=== PATIENT | female | born 1990 | race Caucasian/White ===

== ENCOUNTER 2022-01-25 21:09 | Emergency (ER) | payer MEDICAID ==
[~2022-01-25] VITALS: Ht 154.9 cm; Wt 67.6 kg
[~2022-01-25 21:09] MED LIST: ADVIL; MOTRIN; TYLENOL
[2022-01-25 21:23] VITALS: BP 126/65
--- NOTE | 2022-01-25 22:12 | NUR ---
Patient ambulated to bed 4.
--- NOTE | 2022-01-25 22:36 | NUR ---
31/F BIB SELF C/O RIGHT EAR PAIN X1WK RAD TO THE JAW. PATIENT STATED THAT DRAINAGE IS CLEAR. PT HAS BEEN TAKING OTC MEDS WITH NO RELIEF. PT DENIES COUGH, CONGESTION, RUNNY NOSE AND FEVER. DENIES HX RX AND ALLEGIES
[2022-01-25] MEDS ORDERED: NAPR-54 PO (22:46)
[2022-01-25] MEDS ORDERED: AMOX500C25 PO (22:46)
[2022-01-25] MEDS ORDERED: HYDROcodone/APAP 5/325 MG 1 TAB TAB PO ONE (22:50)
--- NOTE | 2022-01-25 22:52 | NUR ---
PT CONFIRMED SHE HAS A RIDE HOME.
[2022-01-25 23:14] VITALS: BP 112/57
--- NOTE | 2022-01-25 23:14 | NUR ---
Patient discharged with v/s stable. Written and verbal after care instructions given and explained. Patient alert, oriented and verbalized understanding of instructions. Ambulatory with steady gait. All questions addressed prior to discharge. ID band removed. Patient advised to follow up with PMD. Rx of AMOXICILLIN AND NAPROSYN given. Patient educated on indication of medication including possible reaction and side effects. Opportunity to ask questions provided and answered.
== END 2022-01-25 23:14 | disposition home or self-care (01) ==
LOC: MED 21:09
DX: H66.91 Otitis media, unspecified, right ear (principal); Z98.51 Tubal ligation status; Z90.49 Acquired absence of other specified parts of digestive tract; Z98.890 Other specified postprocedural states
CPT/HCPCS: 99283

== ENCOUNTER 2023-05-15 19:48 | Emergency (ER) | payer MEDICAID ==
[~2023-05-15] VITALS: Ht 154.9 cm; Wt 53.8 kg
[~2023-05-15 19:48] MED LIST changes: +AMOX500C25 PO; +NAPR-54 PO
[2023-05-15 20:22] VITALS: BP 130/95; PULSE 73; RESP 20; TEMP 97.4; O2SAT 100
[2023-05-15 21:55] LABS: BASOPHILS # (AUTO) 0.1 K/uL (0.00-0.22); EOSINOPHILS # (AUTO) 0.2 K/uL (0-0.4); EOSINOPHILS % (AUTO) 2.7 % (0.0-4.0); HEMATOCRIT 27.7 % (36-48); HEMOGLOBIN 8.5 g/dL (12.0-16.0); LYMPHOCYTES # (AUTO) 2.1 K/uL (2.5-16.5); LYMPHOCYTES % (AUTO) 29.2 % (20.5-51.1); MEAN CORPUSCULAR HEMOGLOBIN 19 pg (27-31); MEAN CORPUSCULAR HGB CONC 31 g/dL (33-37); MEAN CORPUSCULAR VOLUME 62.9 fL (80-94); MONOCYTES # (AUTO) 0.5 K/uL (0.8-1.0); MONOCYTES % (AUTO) 7.5 % (1.7-9.3); NEUTROPHILS # (AUTO) 4.2 K/uL (1.8-7.7); NEUTROPHILS % (AUTO) 59.6 % (42.2-75.2); PLATELET COUNT (AUTO) 647 K/uL (140-450); RED CELL DISTRIBUTION WIDTH 17.2 % (11.6-13.7); WHITE BLOOD COUNT (AUTO) 7.1 K/uL (4.8-10.8)
[2023-05-15 22:20] LABS: ALBUMIN 3.4 g/dL (3.4-5.0); ANION GAP 7.8 (8-16); CALCIUM 8.8 mg/dL (8.5-10.1); CARBON DIOXIDE 31.1 mmol/L (21-32); CREATININE 0.7 mg/dL (0.6-1.3); POTASSIUM 3.9 mmol/L (3.5-5.1); TOTAL BILIRUBIN 0.3 mg/dL (0.0-1.0); TOTAL PROTEIN, SERUM 7.5 g/dL (6.4-8.2)
[2023-05-16] MEDS: ONDANSETRON 4 MG/2 ML VIAL IVP ONE ×2 (00:10→00:33)
[2023-05-16] MEDS: KETOROLAC 30 MG/ML VIAL IVP ONE ×2 (00:10→00:31)
[2023-05-16] MEDS: ACETAMINOPHEN EXTRA STRENGTH 500 MG TAB PO ONE ×2 (00:10→00:32)
[2023-05-16] MEDS: NACL 0.9% 1,000 ML IV ONE (00:29)
[2023-05-16] MEDS ORDERED: ACETAMINOPHEN EXTRA STRENGTH 500 MG TAB ONE (01:48)
[2023-05-16] MEDS ORDERED: KETOROLAC 15 MG/ML VIAL ONE (01:48)
[2023-05-16] MEDS ORDERED: ONDANSETRON 4 MG/2 ML VIAL ONE (01:48)
[2023-05-16] MEDS ORDERED: TRAM-748 PO (07:31)
[2023-05-16 08:22] VITALS: BP 136/78; PULSE 78; RESP 18; TEMP 98.3; O2SAT 97
== END 2023-05-16 08:22 | disposition home or self-care (01) ==
LOC: MED 19:48
DX: R10.13 Epigastric pain (principal); Z79.899 Other long term (current) drug therapy
CPT/HCPCS: 36415; 74176; 80053; 81025; 83690; 84702; 85025; 96361; 96374; 96375; 99285; J1885; J2405; J7030

== ENCOUNTER 2023-05-30 22:11 | Inpatient (IN) | payer MEDICAID ==
[~2023-05-30] VITALS: Ht 154.9 cm; Wt 54.4 kg
[~2023-05-30 22:11] MED LIST changes: +TRAM-748 PO
[2023-05-30 22:38] VITALS: BP 108/55; PULSE 118; RESP 20; TEMP 101.6; O2SAT 99
[2023-05-30] MEDS ORDERED: NACL 0.9% 2,000 ML IV ONE (23:20)
[2023-05-30 23:41] LABS: APPEARANCE,URINE CLEAR (CLEAR); BILIRUBIN,URINE NEGATIVE (NEGATIVE); BLOOD, URINE 3+ (NEGATIVE); COLOR,URINE YELLOW (YELLOW); LEUKOCYTE ESTERASE ,URINE TRACE (NEGATIVE); NITRITE, URINE NEGATIVE (NEGATIVE); PROTEIN,URINE 2+ (NEGATIVE); UGLUCOSE NEGATIVE (NEGATIVE); UROBILINOGEN,URINE 0.2 EU/dL (0.2 - 1)
[2023-05-30] MEDS ORDERED: cefTRIAXone 1,000 MG VIAL ONE (23:42)
[2023-05-30] MEDS ORDERED: KETOROLAC 30 MG/ML VIAL IVP ONE (23:45)
[2023-05-30] MEDS ORDERED: ACETAMINOPHEN EXTRA STRENGTH 500 MG TAB PO ONE (23:45)
[2023-05-30 23:51] LABS: BACTERIA,URINE >30 (MANY) /HPF (None Seen); RBC,URINE 11-20 (MOD) /HPF (0-5)
[2023-05-30 23:52] LABS: MUCUS,URINE 1+ /LPF (None Seen); SQUAMOUS EPITHELIAL CELL,UR 4-10 (MOD) /LPF (0-3 (FEW))
[2023-05-30 23:56] LABS: BASOPHILS # (AUTO) 0.1 K/uL (0.00-0.22); BASOPHILS % (AUTO) 0.3 % (0.0-2.0); EOSINOPHILS % (AUTO) 0.1 % (0.0-4.0); HEMATOCRIT 23.2 % (36-48); HEMOGLOBIN 7.1 g/dL (12.0-16.0); LYMPHOCYTES # (AUTO) 1.2 K/uL (2.5-16.5); LYMPHOCYTES % (AUTO) 5.7 % (20.5-51.1); MEAN CORPUSCULAR HEMOGLOBIN 19 pg (27-31); MEAN CORPUSCULAR HGB CONC 31 g/dL (33-37); MEAN CORPUSCULAR VOLUME 61.6 fL (80-94); MONOCYTES % (AUTO) 9.8 % (1.7-9.3); NEUTROPHILS # (AUTO) 17.4 K/uL (1.8-7.7); NEUTROPHILS % (AUTO) 84.1 % (42.2-75.2); PLATELET COUNT (AUTO) 601 K/uL (140-450); RED BLOOD CELL COUNT(AUTO) 3.78 MIL/uL (4.20-5.40); RED CELL DISTRIBUTION WIDTH 17.7 % (11.6-13.7); WHITE BLOOD COUNT (AUTO) 20.6 K/uL (4.8-10.8)
[2023-05-31 00:14] LABS: ALANINE AMINOTRANSFERASE 43 U/L (12-78); ALKALINE PHOSPHATASE 159 U/L (50-136); ANION GAP 10.8 (8-16); ASPARTATE AMINOTRANSFERASE 58 U/L (15-37); CARBON DIOXIDE 26.4 mmol/L (21-32); CHLORIDE 100 mmol/L (98-107); CREATINE KINASE, TOTAL 388 U/L (26-192); CREATININE 0.8 mg/dL (0.6-1.3); GFR ARICAN-AMERICAN 108 mL/min (>90); GFR NON ARICAN-AMERICAN 90 mL/min (>90); GLUCOSE 105 mg/dL (74-106); POTASSIUM 4.2 mmol/L (3.5-5.1); SODIUM SERUM 133 mmol/L (136-145); TOTAL BILIRUBIN 0.4 mg/dL (0.0-1.0); TOTAL PROTEIN, SERUM 7.4 g/dL (6.4-8.2); UREA NITROGEN, BLOOD 14 mg/dL (7-18)
[2023-05-31 01:06] LABS: LACTIC ACID 1.4 mmol/L (0.4-2.0)
[2023-05-31] MEDS ORDERED: POTASSIUM CHLORIDE 10 MEQ TABER PO PRN (03:30)
[2023-05-31] MEDS ORDERED: guaiFENesin DM 200/20 MG-10 ML 10 ML UDC PO PRN (03:30)
[2023-05-31] MEDS ORDERED: ZOLPIDEM 5 MG TAB PO PRN (03:30)
[2023-05-31] MEDS ORDERED: NACL 0.9% 1,000 ML IV SCH (03:30)
[2023-05-31] MEDS ORDERED: DOCUSATE SODIUM 100 MG GELCAP PO PRN (03:30)
[2023-05-31] MEDS ORDERED: ONDANSETRON 4 MG/2 ML VIAL IM/IVP PRN (03:30)
[2023-05-31 04:25] VITALS: BP 113/44; PULSE 75; PULSE 92; RESP 18; TEMP 97.5; O2SAT 100
[2023-05-31 06:44] LABS: BASOPHILS # (AUTO) 0.1 K/uL (0.00-0.22); BASOPHILS % (AUTO) 0.3 % (0.0-2.0); HEMATOCRIT 26.8 % (36-48); LYMPHOCYTES # (AUTO) 2.6 K/uL (2.5-16.5); LYMPHOCYTES % (AUTO) 13.3 % (20.5-51.1); MEAN CORPUSCULAR HEMOGLOBIN 19 pg (27-31); MEAN CORPUSCULAR HGB CONC 30 g/dL (33-37); MEAN CORPUSCULAR VOLUME 62.6 fL (80-94); MONOCYTES # (AUTO) 2.2 K/uL (0.8-1.0); MONOCYTES % (AUTO) 11.2 % (1.7-9.3); NEUTROPHILS # (AUTO) 14.6 K/uL (1.8-7.7); NEUTROPHILS % (AUTO) 75.2 % (42.2-75.2); PLATELET COUNT (AUTO) 610 K/uL (140-450); RED BLOOD CELL COUNT(AUTO) 4.28 MIL/uL (4.20-5.40); RED CELL DISTRIBUTION WIDTH 17.5 % (11.6-13.7); WHITE BLOOD COUNT (AUTO) 19.5 K/uL (4.8-10.8)
[2023-05-31 07:12] LABS: ALBUMIN 2.8 g/dL (3.4-5.0); ANION GAP 13.9 (8-16); CALCIUM 8.1 mg/dL (8.5-10.1); CARBON DIOXIDE 22.4 mmol/L (21-32); CREATININE 0.7 mg/dL (0.6-1.3); POTASSIUM 4.3 mmol/L (3.5-5.1); TOTAL BILIRUBIN 0.3 mg/dL (0.0-1.0); TOTAL PROTEIN, SERUM 7.4 g/dL (6.4-8.2)
[2023-05-31 08:00] VITALS: BP 114/52; PULSE 100; PULSE 97; RESP 18; TEMP 100.2; O2SAT 98
[2023-05-31] MEDS ORDERED: LACTATED RINGERS 1,000 ML IV SCH (08:15)
[2023-05-31] MEDS: PANTOPRAZOLE 40 MG TABEC PO SCH (08:57)
[2023-05-31] MEDS: ACETAMINOPHEN 325 MG TAB PO PRN ×3 (08:57→23:29)
[2023-05-31] MEDS: NACL 0.9% 1,000 ML IV SCH ×3 (09:00→23:25)
[2023-05-31 12:00] VITALS: BP 104/67; PULSE 100; RESP 18; TEMP 97.4; O2SAT 100
[2023-05-31] MEDS: HYDROcodone/APAP 7.5/325 MG 1 TAB PO PRN (14:32)
[2023-05-31 16:00] VITALS: BP 106/60; PULSE 104; RESP 18; TEMP 98.4; O2SAT 100
[2023-05-31 19:02] LABS: AMPHETAMINE, URINE NEGATIVE ng/ml (NEG <=1000); BARBITURATE, URINE NEGATIVE ng/ml (NEG <=200); BENZODIAZEPINE, URINE NEGATIVE ng/mL (NEG <=200); CANNABINOID, URINE NEGATIVE ng/mL (NEG <=50); COCAINE, URINE NEGATIVE ng/mL (NEG <=300); OPIATE, URINE POSITIVE ng/mL (NEG <=2000); PHENCYCLIDINE SCREEN,URINE NEGATIVE ng/mL (NEG <=25)
[2023-05-31 20:00] VITALS: BP 100/68; PULSE 81; RESP 18; TEMP 98.2; O2SAT 98
[2023-05-31] MEDS ORDERED: LORazepam 1 MG TAB PO ONE (22:05)
[2023-06-01] MEDS ORDERED: LORazepam 1 MG TAB ONE (00:06)
[2023-06-01 04:00] VITALS: BP_SYST 107; BP_SYST 161; BP_DIAS 60; BP_DIAS 76; PULSE 82; RESP 18; TEMP 98.6; O2SAT 98
[2023-06-01 06:49] LABS: BASOPHILS % (AUTO) 0.2 % (0.0-2.0); EOSINOPHILS % (AUTO) 0.1 % (0.0-4.0); HEMATOCRIT 21.9 % (36-48); LYMPHOCYTES # (AUTO) 2.9 K/uL (2.5-16.5); LYMPHOCYTES % (AUTO) 15.8 % (20.5-51.1); MEAN CORPUSCULAR HEMOGLOBIN 19 pg (27-31); MEAN CORPUSCULAR HGB CONC 30 g/dL (33-37); MEAN CORPUSCULAR VOLUME 61.9 fL (80-94); MONOCYTES # (AUTO) 2.7 K/uL (0.8-1.0); MONOCYTES % (AUTO) 15.2 % (1.7-9.3); NEUTROPHILS # (AUTO) 12.5 K/uL (1.8-7.7); NEUTROPHILS % (AUTO) 68.7 % (42.2-75.2); PLATELET COUNT (AUTO) 496 K/uL (140-450); RED BLOOD CELL COUNT(AUTO) 3.53 MIL/uL (4.20-5.40); RED CELL DISTRIBUTION WIDTH 17.8 % (11.6-13.7); WHITE BLOOD COUNT (AUTO) 18.1 K/uL (4.8-10.8)
[2023-06-01 07:01] LABS: HEMOGLOBIN 6.6 g/dL (12.0-16.0)
[2023-06-01 07:22] LABS: ALBUMIN 2.3 g/dL (3.4-5.0); CALCIUM 7.6 mg/dL (8.5-10.1); CARBON DIOXIDE 26.8 mmol/L (21-32); CREATININE 0.6 mg/dL (0.6-1.3); POTASSIUM 3.8 mmol/L (3.5-5.1); TOTAL BILIRUBIN 0.2 mg/dL (0.0-1.0); TOTAL PROTEIN, SERUM 6.5 g/dL (6.4-8.2)
[2023-06-01 08:00] VITALS: TEMP 98.2
[2023-06-01] MEDS: PANTOPRAZOLE 40 MG TABEC PO SCH (09:04)
[2023-06-01 09:43] VITALS: PULSE 94; RESP 18; O2SAT 100
[2023-06-01] MEDS ORDERED: LORazepam 1 MG TAB PO PRN (13:30)
[2023-06-01] MEDS: HYDROcodone/APAP 7.5/325 MG 1 TAB PO PRN (14:10)
[2023-06-01 17:00] LABS: HEMOGLOBIN 8.7 g/dL (12.0-16.0)
[2023-06-01] MEDS: FERROUS GLUCONATE 324 MG TAB PO SCH (17:20)
[2023-06-01 18:03] VITALS: BP 109/52; PULSE 90; RESP 18; TEMP 98.8; O2SAT 98
[2023-06-01 20:00] VITALS: BP 117/82; PULSE 83; RESP 18; TEMP 98.5; O2SAT 98
[2023-06-01] MEDS: ACETAMINOPHEN 325 MG TAB PO PRN (20:45)
[2023-06-02 04:00] VITALS: BP 112/72; PULSE 75; RESP 18; TEMP 98.5; O2SAT 98
[2023-06-02 06:45] LABS: BASOPHILS # (AUTO) 0.1 K/uL (0.00-0.22); BASOPHILS % (AUTO) 0.6 % (0.0-2.0); EOSINOPHILS # (AUTO) 0.1 K/uL (0-0.4); EOSINOPHILS % (AUTO) 0.6 % (0.0-4.0); HEMATOCRIT 27.2 % (36-48); HEMOGLOBIN 8.5 g/dL (12.0-16.0); LYMPHOCYTES # (AUTO) 2.4 K/uL (2.5-16.5); LYMPHOCYTES % (AUTO) 19.1 % (20.5-51.1); MEAN CORPUSCULAR HEMOGLOBIN 20 pg (27-31); MEAN CORPUSCULAR HGB CONC 31 g/dL (33-37); MEAN CORPUSCULAR VOLUME 65.3 fL (80-94); MONOCYTES # (AUTO) 1.3 K/uL (0.8-1.0); MONOCYTES % (AUTO) 10.1 % (1.7-9.3); NEUTROPHILS # (AUTO) 8.7 K/uL (1.8-7.7); NEUTROPHILS % (AUTO) 69.6 % (42.2-75.2); PLATELET COUNT (AUTO) 579 K/uL (140-450); RED BLOOD CELL COUNT(AUTO) 4.16 MIL/uL (4.20-5.40); RED CELL DISTRIBUTION WIDTH 20.9 % (11.6-13.7); WHITE BLOOD COUNT (AUTO) 12.5 K/uL (4.8-10.8)
[2023-06-02 07:01] LABS: ANION GAP 11.8 (8-16); CALCIUM 8.4 mg/dL (8.5-10.1); CREATININE 0.7 mg/dL (0.6-1.3); POTASSIUM 3.8 mmol/L (3.5-5.1)
[2023-06-02 08:00] VITALS: BP 113/73; PULSE 83; PULSE 86; RESP 18; TEMP 98.1; O2SAT 100; O2SAT 98
[2023-06-02] MEDS: PANTOPRAZOLE 40 MG TABEC PO SCH (09:07)
[2023-06-02] MEDS: FERROUS GLUCONATE 324 MG TAB PO SCH ×2 (09:07→17:38)
[2023-06-02] MEDS: ACETAMINOPHEN 325 MG TAB PO PRN (13:17)
[2023-06-02 16:00] VITALS: BP 102/68; PULSE 75; RESP 18; TEMP 97.7; O2SAT 100
[2023-06-03 07:07] LABS: FOLIC ACID 6.4 ng/mL (>3.0)
== END 2023-06-02 19:24 | disposition left against medical advice (07) | DRG 720 ==
LOC: MED 22:11 → MTU 05-31 03:33
PROVIDERS: ADMIT Student in an Organized Health Care Education/Training Program; ATTEND Student in an Organized Health Care Education/Training Program
PROC: 30233N1 Transfusion of Nonautologous Red Blood Cells into Peripheral Vein, Percutaneous Approach (ICD-10-PCS; principal; 2023-06-01)
DX: A41.9 Sepsis, unspecified organism (principal); E44.0 Moderate protein-calorie malnutrition; E87.1 Hypo-osmolality and hyponatremia; E88.09 Other disorders of plasma-protein metabolism, not elsewhere classified; N10 Acute pyelonephritis; E83.52 Hypercalcemia; D75.839 Thrombocytosis, unspecified; Z53.29 Procedure and treatment not carried out because of patient's decision for other reasons; D64.9 Anemia, unspecified; F15.10 Other stimulant abuse, uncomplicated; Z90.49 Acquired absence of other specified parts of digestive tract; Z68.22 Body mass index [BMI] 22.0-22.9, adult
CPT/HCPCS: 36415; 71045; 80048; 80053; 80305; 81001; 81025; 82550; 82553; 82607; 82746; 83540; 83605; 84484; 85018; 85025; 86886; 86900; 86901; 86920; 87040; 87081; 87086; 93005; 96365; 96375; 99291; J0696; J1885; J2405; J7060; P9016

== ENCOUNTER 2024-03-11 23:35 | Emergency (ER) | payer MEDICAID ==
[~2024-03-11] VITALS: Ht 154.9 cm; Wt 55.8 kg
[~2024-03-11 23:35] MED LIST changes: +NAPR-337 PO; -NAPR-54 PO
[2024-03-11 23:49] VITALS: BP 122/72; PULSE 78; RESP 20; TEMP 96.2; O2SAT 100
[2024-03-12] VITALS: O2SAT 100
[2024-03-12 01:04] LABS: BASOPHILS # (AUTO) 0.1 K/uL (0.00-0.22); BASOPHILS % (AUTO) 1.6 % (0.0-2.0); EOSINOPHILS # (AUTO) 0.3 K/uL (0-0.4); EOSINOPHILS % (AUTO) 3.3 % (0.0-4.0); HEMATOCRIT 32.3 % (36-48); HEMOGLOBIN 9.9 g/dL (12.0-16.0); LYMPHOCYTES # (AUTO) 1.9 K/uL (2.5-16.5); LYMPHOCYTES % (AUTO) 23.8 % (20.5-51.1); MEAN CORPUSCULAR HEMOGLOBIN 21 pg (27-31); MEAN CORPUSCULAR HGB CONC 31 g/dL (33-37); MEAN CORPUSCULAR VOLUME 69.1 fL (80-94); MONOCYTES # (AUTO) 0.7 K/uL (0.8-1.0); NEUTROPHILS # (AUTO) 4.9 K/uL (1.8-7.7); NEUTROPHILS % (AUTO) 62.3 % (42.2-75.2); PLATELET COUNT (AUTO) 494 K/uL (140-450); RED BLOOD CELL COUNT(AUTO) 4.68 MIL/uL (4.20-5.40); RED CELL DISTRIBUTION WIDTH 23.4 % (11.6-13.7); WHITE BLOOD COUNT (AUTO) 7.8 K/uL (4.8-10.8)
[2024-03-12 01:08] LABS: ANION GAP 7.9 (8-16); CALCIUM 8.7 mg/dL (8.5-10.1); CARBON DIOXIDE 32.4 mmol/L (21-32); CREATININE 0.7 mg/dL (0.6-1.3); POTASSIUM 3.3 mmol/L (3.5-5.1)
[2024-03-12] MEDS: ACETAMINOPHEN EXTRA STRENGTH 500 MG TAB PO ONE (02:33)
== END 2024-03-12 02:47 | disposition home or self-care (01) ==
LOC: MED 23:35
DX: D50.9 Iron deficiency anemia, unspecified (principal); Z79.2 Long term (current) use of antibiotics; Z79.1 Long term (current) use of non-steroidal anti-inflammatories (NSAID); Z79.899 Other long term (current) drug therapy
CPT/HCPCS: 36415; 80048; 85025; 99283